=== PATIENT | female | born 1995 | race Caucasian/White ===

== ENCOUNTER 2021-10-05 21:38 | Emergency (ER) | payer OTHER ==
[2021-10-05 22:22] LABS: BASOPHIL 0.2 % (0-2); EOSINOPHIL 2.3 % (0-5); HCT 40.8 % (37.0-47.0); HGB 13.9 g/dl (12.5-16.0); LYMPHOCYTE 20.4 % (15-48); MCH 29.8 pg (25.0-31.0); MCHC 34.1 g/dL (32.0-36.0); MCV 87.6 fL (78.0-100.0); MONOCYTE 4.6 % (0-12); MPV 10.1 fL (6.0-9.5); NEUTROPHIL 72.3 % (41-80); NRBC 0; PLT 292 K/uL (150-400); RBC 4.66 M/uL (4.20-5.40); RDW 11.8 % (11.5-14.0); WBC 9.9 K/uL (4.0-10.5)
[2021-10-05 22:39] LABS: ALBUMIN 4.4 g/dL (3.4-5.0); BILIRUBIN - TOTAL 0.2 mg/dL (0.2-1.0); BUN/CREAT RATIO (CALC) 14.3 RATIO; CREATININE 0.63 mg/dL (0.51-0.95); GLOBULIN (CALCULATION) 3.7 g/dL; POTASSIUM 3.4 mmol/L (3.5-5.1); TOTAL PROTEIN 8.1 g/dL (6.4-8.2)
[2021-10-05 22:46] LABS: LACTIC ACID 1.8 mmol/L (0.4-1.9)
[2021-10-05 23:19] LABS: CORONAVIRUS 2019 SARS-COV-2 NEGATIVE (NEGATIVE); INFLUENZA A NAA NEGATIVE (NEGATIVE)
== END 2021-10-06 01:00 | disposition home or self-care (01) ==
LOC: FER 21:38
PROVIDERS: Nurse Practitioner Family
DX: K62.5 Hemorrhage of anus and rectum (principal); N83.201 Unspecified ovarian cyst, right side; F17.290 Nicotine dependence, other tobacco product, uncomplicated; F32.9 Major depressive disorder, single episode, unspecified; F41.9 Anxiety disorder, unspecified; Z90.49 Acquired absence of other specified parts of digestive tract; Z20.822 Contact with and (suspected) exposure to COVID-19; Z79.899 Other long term (current) drug therapy; Z88.0 Allergy status to penicillin; Z98.890 Other specified postprocedural states
CPT/HCPCS: 36415; 80053; 82150; 83605; 83690; 85025; 87040; 93005; J2405; J7030; Q9967; U0002

== ENCOUNTER 2021-11-29 14:56 | Emergency (ER) | payer OTHER ==
[2021-11-29 17:28] LABS: BASOPHIL 0.2 % (0-2); EOSINOPHIL 0.3 % (0-5); HCT 37.9 % (37.0-47.0); HGB 13.1 g/dl (12.5-16.0); LYMPHOCYTE 5.2 % (15-48); MCH 30.5 pg (25.0-31.0); MCHC 34.6 g/dL (32.0-36.0); MCV 88.1 fL (78.0-100.0); MONOCYTE 7.5 % (0-12); MPV 9.9 fL (6.0-9.5); NEUTROPHIL 86.3 % (41-80); NRBC 0; PLT 214 K/uL (150-400); RDW 11.9 % (11.5-14.0); WBC 18.8 K/uL (4.0-10.5)
[2021-11-29 17:33] LABS: BILIRUBIN NEGATIVE (NEGATIVE); BLOOD 3+ Ery/uL (NEGATIVE); CLARITY CLOUDY (CLEAR); COLOR YELLOW (YELLOW); GLUCOSE (U) NORMAL (NORMAL); LEUKOCYTES 3+ Leu/uL (NEGATIVE); NITRITE POSITIVE (NEGATIVE); PROTEIN 1+ mg/dL (NEGATIVE); UROBILINOGEN 0.2 mg/dL (0.2-1.0); pH 6.5 (5.0-9.0)
[2021-11-29 17:35] LABS: BACTERIA 4+; MUCOUS TRACE; SQUAMOUS EPITHELIAL CELLS RARE; URINARY WBC TNTC
[2021-11-29 17:44] LABS: ALBUMIN 4.1 g/dL (3.4-5.0); BILIRUBIN - TOTAL 0.5 mg/dL (0.2-1.0); BUN/CREAT RATIO (CALC) 8.1 RATIO; CREATININE 0.74 mg/dL (0.51-0.95); GLOBULIN (CALCULATION) 4.1 g/dL; POTASSIUM 3.6 mmol/L (3.5-5.1); TOTAL PROTEIN 8.2 g/dL (6.4-8.2)
[2021-11-29 17:54] LABS: LACTIC ACID 0.9 mmol/L (0.4-1.9)
[2021-11-30] MEDS ORDERED: ONDANSETRON ODT4 MG PO (05:00)
[2021-11-30] MEDS ORDERED: BACTRIM DS TAB1 EACH PO (05:00)
== END 2021-11-30 05:28 | disposition home or self-care (01) ==
LOC: FER 14:56
PROVIDERS: Physician Assistant
DX: N12 Tubulo-interstitial nephritis, not specified as acute or chronic (principal); F17.290 Nicotine dependence, other tobacco product, uncomplicated; Z88.0 Allergy status to penicillin
CPT/HCPCS: 36415; 80053; 81001; 83605; 83690; 84145; 85025; 87040; 87076; 87088; 87186; 93005; J0696; J1170; J1885; J2270; J2405; J7030